=== PATIENT | male | born 1980 | race Two or more races ===

== ENCOUNTER 2019-03-03 11:15 | Inpatient (IN) | payer SELFPAY ==
[~2019-03-03] VITALS: Ht 177.8 cm; Wt 99.8 kg
[2019-03-03] VITALS (7 sets, daily range): BP systolic 117–136; BP diastolic 66–86
[2019-03-03] MEDS ORDERED: MORPHINE SULFATE 4 MG/ML VIAL. IV/SQ PRN (12:00)
[2019-03-03] MEDS ORDERED: IV NORMAL SALINE 1000ML BAG 1,000 ML IV SCH ×3 (12:00→16:18)
--- NOTE | 2019-03-03 12:08 | PHYS DOC ---
Past Medical History Past Medical History: No Pertinent History Past Surgical History: No Surgical History Alcohol Use: Occasionally Drug Use: None Adult General Chief Complaint Chief Complaint: ABDOMINAL PAIN HPI HPI Patient is a 39-year-old male who presents with complaint of right lower quadrant abdominal pain that started about a day and a half ago. Patient indicates that pain has been progressively getting worse and he states that pain was so severe last night that he wanted to cry. He states that he has had fever as well as decreased appetite. He rates pain at a 10 out of 10 and states that pain is worsened with walking and with palpation of his abdomen. He states that nothing is improving his symptoms.[] Review of Systems Review of Systems Constitutional: Positive fever and chills [] Respiratory: Denies cough or shortness of breath [] Cardiovascular: No additional information not addressed in HPI [] GI: Positive abdominal pain without vomiting or diarrhea [] : Denies dysuria or hematuria [] Musculoskeletal: Denies back pain or joint pain [] Integument: Denies rash or skin lesions [] Neurologic: Denies headache, focal weakness or sensory changes [] All other systems were reviewed and found to be within normal limits, except as documented in this note. Current Medications Current Medications Current Medications Medications (Trade) Dose Ordered Sig/Doris Start Time Stop Time Status Last Admin Dose Admin Info (CONTRAST GIVEN -- Rx MONITORING) 1 each PRN DAILY PRN 03/03/19 12:45 03/05/19 12:44 Iohexol (Omnipaque 300 Mg/ml) 75 ml 1X ONCE 03/03/19 13:00 03/03/19 13:01 DC 03/03/19 12:55 75 ML Morphine Sulfate (Morphine Sulfate) 4 mg PRN Q15MIN PRN 03/03/19 12:00 03/04/19 11:59 03/03/19 12:06 4 MG Ondansetron HCl (Zofran) 4 mg 1X ONCE 03/03/19 12:15 03/03/19 12:16 DC 03/03/19 12:05 4 MG Piperacillin Sod/ Tazobactam Sod 3.375 gm/Sodium Chloride 50 ml @ 100 mls/hr 1X ONCE 03/03/19 13:30 03/03/19 13:59 03/03/19 13:16 100 MLS/HR Sodium Chloride 1,000 ml @ 1,000 mls/hr Q1H 03/03/19 12:00 03/03/19 12:59 DC 03/03/19 12:05 1,000 MLS/HR Allergies Allergies Allergies Coded Allergies Type Severity Reaction Last Updated Verified No Known Drug Allergies 03/03/19 No Physical Exam Physical Exam Constitutional: Well developed, well nourished, no acute distress, non-toxic appearance. [] HENT: Normocephalic, atraumatic, bilateral external ears normal, oropharynx moist, no oral exudates, nose normal. [] Eyes: PERRLA, EOMI, conjunctiva normal, no discharge. [] Neck: Normal range of motion, no tenderness, supple, no stridor. [] Cardiovascular:Heart rate regular rhythm, no murmur [] Lungs & Thorax: Bilateral breath sounds clear to auscultation [] Abdomen: Bowel sounds diminished, soft, with moderate McBurney's point tenderness. Positive rebound. [] Skin: Warm, dry, no erythema, no rash. [] Extremities: No tenderness, no cyanosis, no clubbing, ROM intact, no edema. [] Neurologic: Alert and oriented X 3, no focal deficits noted. [] Current Patient Data Vital Signs Vital Signs Date Time Temp Pulse Resp B/P (MAP) Pulse Ox O2 Delivery O2 Flow Rate FiO2 03/03/19 12:53 99 16 140/75 (96) 97 Room Air 03/03/19 11:43 98.8 98.8 Lab Values Laboratory Tests Test 03/03/19 11:41 03/03/19 12:05 Urine Collection Type Unknown Urine Color Jyoti Urine Clarity Clear Urine pH 5.5 Urine Specific [place] >=1.030 Urine Protein Negative mg/dL (NEG-TRACE) Urine Glucose (UA) Negative mg/dL (NEG) Urine Ketones (Stick) Negative mg/dL (NEG) Urine Blood Negative (NEG) Urine Nitrite Negative (NEG) Urine Bilirubin Negative (NEG) Urine Urobilinogen Dipstick 1.0 mg/dL (0.2 mg/dL) Urine Leukocyte Esterase Negative (NEG) Urine RBC 0 /HPF (0-2) Urine WBC 1-4 /HPF (0-4) Urine Squamous Epithelial Cells Occ /LPF Urine Bacteria 0 /HPF (0-FEW) Urine Mucus Marked /LPF White Blood Count 16.5 x10^3/uL (4.0-11.0) H Red Blood Count 5.53 x10^6/uL (4.30-5.70) Hemoglobin 15.1 g/dL (13.0-17.5) Hematocrit 45.1 % (39.0-53.0) Mean Corpuscular Volume 82 fL (79-100) Mean Corpuscular Hemoglobin 27 pg (25-35) Mean Corpuscular Hemoglobin Concent 34 g/dL (31-37) Red Cell Distribution Width 12.9 % (11.5-14.5) Platelet Count 267 x10^3/uL (140-400) Neutrophils (%) (Auto) 80 % (31-73) H Lymphocytes (%) (Auto) 12 % (24-48) L Monocytes (%) (Auto) 8 % (0-9) Eosinophils (%) (Auto) 0 % (0-3) Basophils (%) (Auto) 0 % (0-3) Neutrophils # (Auto) 13.2 x10^3/uL (1.8-7.7) H Lymphocytes # (Auto) 2.0 x10^3/uL (1.0-4.8) Monocytes # (Auto) 1.3 x10^3/uL (0.0-1.1) H Eosinophils # (Auto) 0.0 x10^3/uL (0.0-0.7) Basophils # (Auto) 0.0 x10^3/uL (0.0-0.2) Segmented Neutrophils % 83 % (35-66) H Lymphocytes % 7 % (24-48) L Monocytes % 10 % (0-10) Platelet Estimate Adequate (ADEQUATE) Sodium Level 138 mmol/L (136-145) Potassium Level 4.7 mmol/L (3.5-5.1) Chloride Level 100 mmol/L (98-107) Carbon Dioxide Level 27 mmol/L (21-32) Anion Gap 11 (6-14) Blood Urea Nitrogen 18 mg/dL (8-26) Creatinine 1.3 mg/dL (0.7-1.3) Estimated GFR (Cockcroft-Gault) 61.5 BUN/Creatinine Ratio 14 (6-20) Glucose Level 108 mg/dL (70-99) H Calcium Level 9.3 mg/dL (8.5-10.1) Total Bilirubin 1.2 mg/dL (0.2-1.0) H Aspartate Amino Transferase (AST) 38 U/L (15-37) H Alanine Aminotransferase (ALT) 114 U/L (16-63) H Alkaline Phosphatase 90 U/L (46-116) Total Protein 7.6 g/dL (6.4-8.2) Albumin 4.0 g/dL (3.4-5.0) Albumin/Globulin Ratio 1.1 (1.0-1.7) Lipase 108 U/L (73-393) Laboratory Tests 03/03/19 12:05 Laboratory Tests 03/03/19 12:05 EKG EKG [] Radiology/Procedures Radiology/Procedures [] Impressions: PROCEDURE: CT ABD PELV W/ IV CONTRST ONLY Examination: CT ABD PELV W/ IV CONTRST ONLY History: Right lower quadrant abdominal pain. Comparison/Correlation: None Findings: Axial images of the abdomen and pelvis were obtained following IV contrast. Sagittal and coronal reformatted images were provided. Minimal right costophrenic sulcus linear atelectasis is present. Liver, spleen, pancreas, adrenal glands, and gallbladder fossa are normal. Kidneys are unremarkable. The appendix is distended with fluid. Significant wall thickening of the appendix with marked surrounding inflammatory changes present. No extraluminal gas or loculated collection. No enlarged abdominal or pelvic lymph nodes. Mesenteric lymph nodes are present but small in size. No bowel obstruction. Mild distention of the right abdominal small bowel loops probably representing ileus noted. Bony structures are unremarkable. Urinary bladder is unremarkable. Trace pelvic free fluid suggested. Impression: Acute appendicitis. No abscess. No extraluminal gas. PQRS Compliance Statement: One or more of the following individualized dose reduction techniques were utilized for this examination: 1. Automated exposure control 2. Adjustment of the mA and/or kV according to patient size 3. Use of iterative reconstruction technique Electronically signed by: Wilson Da Silva MD (03/03/2019 1:08 PM) [facility] Course & Med Decision Making Course & Med Decision Making Pertinent Labs and Imaging studies reviewed. (See chart for details) [] Dragon Disclaimer Dragon Disclaimer This electronic medical record was generated, in whole or in part, using a voice recognition dictation system. Departure Departure Impression: Primary Impression: Acute appendicitis Disposition: ADMITTED INPATIENT Admitting Physician: [facility] (Dr. Soni) Condition: IMPROVED Referrals: NO PCP (PCP) Problem Qualifiers Primary Impression: Acute appendicitis Acute appendicitis type: unspecified acute appendicitis type Qualified Codes: K35.80 - Unspecified acute appendicitis FREDIS GORMAN Jr. DO Mar 03, 2019 12:07
[2019-03-03] MEDS ORDERED: ONDANSETRON PF 4 MG/2 ML VIAL. IV ONE (12:15)
[2019-03-03 12:16] LABS: BASO % 0 % (0-3); EOS % 0 % (0-3); HEMATOCRIT 45.1 % (39.0-53.0); HEMOGLOBIN 15.1 g/dL (13.0-17.5); LYMPH % 12 % (24-48); MEAN CORPUSCULAR HEMOGLOBIN 27 pg (25-35); MEAN CORPUSCULAR HGB CONC 34 g/dL (31-37); MEAN CORPUSCULAR VOLUME 82 fL (79-100); MONO # 1.3 x10^3/uL (0.0-1.1); MONO % 8 % (0-9); NEUT # 13.2 x10^3/uL (1.8-7.7); NEUT % 80 % (31-73); PLATELET COUNT 267 x10^3/uL (140-400); RED BLOOD COUNT 5.53 x10^6/uL (4.30-5.70); RED CELL DISTRIBUTION WIDTH 12.9 % (11.5-14.5); WHITE BLOOD COUNT 16.5 x10^3/uL (4.0-11.0)
[2019-03-03 12:20] LABS: BILIRUBIN,URINE NEGATIVE (NEG); CLARITY,URINE CLEAR; COLOR,URINE AMBER; NITRITE,URINE NEGATIVE (NEG); PH,URINE 5.5; PROTEIN,URINE NEGATIVE (NEG-TRACE)
[2019-03-03 12:34] LABS: CALCIUM 9.3 mg/dL (8.5-10.1); CREATININE 1.3 mg/dL (0.7-1.3); GFR 61.5; POTASSIUM 4.7 mmol/L (3.5-5.1)
[2019-03-03 12:37] LABS: SQUAMOUS EPITHELIAL CELL,UR OCC /LPF
[2019-03-03 12:38] LABS: BACTERIA,URINE 0 /HPF (0-FEW); RBC,URINE 0 /HPF (0-2)
[2019-03-03 12:40] LABS: ALBUMIN/GLOBULIN RATIO 1.1 (1.0-1.7); TOTAL BILIRUBIN 1.2 mg/dL (0.2-1.0); TOTAL PROTEIN 7.6 g/dL (6.4-8.2)
[2019-03-03] MEDS ORDERED: CONTRAST GIVEN. MC PRN (12:45)
[2019-03-03] MEDS ORDERED: IOHEXOL 300 MG/ML 100ML VIAL. IV ONE (13:00)
--- NOTE | 2019-03-03 13:11 | RAD ---
Examination: CT ABD PELV W/ IV CONTRST ONLY History: Right lower quadrant abdominal pain. Comparison/Correlation: None Findings: Axial images of the abdomen and pelvis were obtained following IV contrast. Sagittal and coronal reformatted images were provided. Minimal right costophrenic sulcus linear atelectasis is present. Liver, spleen, pancreas, adrenal glands, and gallbladder fossa are normal. Kidneys are unremarkable. The appendix is distended with fluid. Significant wall thickening of the appendix with marked surrounding inflammatory changes present. No extraluminal gas or loculated collection. No enlarged abdominal or pelvic lymph nodes. Mesenteric lymph nodes are present but small in size. No bowel obstruction. Mild distention of the right abdominal small bowel loops probably representing ileus noted. Bony structures are unremarkable. Urinary bladder is unremarkable. Trace pelvic free fluid suggested. Impression: Acute appendicitis. No abscess. No extraluminal gas. PQRS Compliance Statement: One or more of the following individualized dose reduction techniques were utilized for this examination: 1. Automated exposure control 2. Adjustment of the mA and/or kV according to patient size 3. Use of iterative reconstruction technique Electronically signed by: Wilson Da Silva MD (03/03/2019 1:08 PM) [id number]
[2019-03-03 13:23] LABS: % LYMPHS 7 % (24-48); % MONOS 10 % (0-10); % SEGS 83 % (35-66); PLT ESTIMATE ADEQUATE (ADEQUATE)
[2019-03-03] MEDS ORDERED: PIPERACILLIN/TAZOBACTAM 3.375 GM in IV NORMAL SALINE 50ML 50 ML IV ONE (13:30)
[2019-03-03] MEDS ORDERED: MORPHINE SULFATE 4 MG/ML VIAL. IV PRN (13:45)
[2019-03-03] MEDS ORDERED: ONDANSETRON PF 4 MG/2 ML VIAL. IV PRN ×3 (13:45→17:00)
--- NOTE | 2019-03-03 14:00 | PDOC2 ---
CONSULT Date of Consult Date of Consult DATE: 03/03/19 TIME: 13:56 Reason for Consult Reason for Consult: appendicitis Referring Physician Referring Physician: Dr Soni Identification/Chief Complaint Chief Complaint RLQ pain Source Source: Chart review, Patient History of Present Illness Reason for Visit: Robel is a 39-year-old with acute onset of abdominal pain. CT scan on presentation demonstrates acute appendicitis. We are asked to see him for same Past Medical History Cardiovascular: No pertinent hx Pulmonary: No pertinent hx Renal/: No pertinent hx Past Surgical History Past Surgical History: No pertinent history Family History Family History: No Significant Current Problem List Problem List Problems Medical Problems: (1) Acute appendicitis Status: Acute Current Medications Current Medications Current Medications Morphine Sulfate (Morphine Sulfate) 4 mg PRN Q15MIN PRN IV/SQ PAIN GREATER THAN 3/10 Last administered on 03/03/19at 12:06; Start 03/03/19 at 12:00; Stop 03/03/19 at 13:41; Status DC Sodium Chloride 1,000 ml @ 1,000 mls/hr Q1H IV Last administered on 03/03/19at 12:05; Start 03/03/19 at 12:00; Stop 03/03/19 at 12:59; Status DC Ondansetron HCl (Zofran) 4 mg 1X ONCE IV Last administered on 03/03/19at 12:05; Start 03/03/19 at 12:15; Stop 03/03/19 at 12:16; Status DC Iohexol (Omnipaque 300 Mg/ml) 75 ml 1X ONCE IV Last administered on 03/03/19at 12:55; Start 03/03/19 at 13:00; Stop 03/03/19 at 13:01; Status DC Info (CONTRAST GIVEN -- Rx MONITORING) 1 each PRN DAILY PRN MC SEE COMMENTS; Start 03/03/19 at 12:45; Stop 03/05/19 at 12:44 Piperacillin Sod/ Tazobactam Sod 3.375 gm/Sodium Chloride 50 ml @ 100 mls/hr 1X ONCE IV Last administered on 03/03/19at 13:16; Start 03/03/19 at 13:30; Stop 03/03/19 at 13:59 Ondansetron HCl (Zofran) 4 mg PRN Q8HRS PRN IV NAUSEA/VOMITING; Start 03/03/19 at 13:45; Stop 03/04/19 at 13:44 Morphine Sulfate (Morphine Sulfate) 4 mg PRN Q2HR PRN IV PAIN; Start 03/03/19 at 13:45; Stop 03/04/19 at 13:44 Sodium Chloride 1,000 ml @ 100 mls/hr Q10H IV Last administered on 03/03/19at 13:54; Start 03/03/19 at 14:00; Stop 03/04/19 at 13:59 Allergies Allergies: Coded Allergies: No Known Drug Allergies (Unverified , 03/03/19) ROS Gastrointestinal: Yes Abdominal Pain, Yes Other (anorexia) Physical Exam General: Alert, Oriented X3, No acute distress HEENT: Atraumatic Lungs: Normal air movement Heart: Regular rate Abdomen: Soft, Other (tender to palpation right lower quadrant) Skin: Other (warm, dry) Neuro: Normal speech Psych/Mental Status: Mental status NL Vitals VITALS Vital Signs Date Time Temp Pulse Resp B/P (MAP) Pulse Ox O2 Delivery O2 Flow Rate FiO2 03/03/19 12:53 99 16 140/75 (96) 97 Room Air 03/03/19 11:43 98.8 98.8 Labs Labs Laboratory Tests Test 03/03/19 11:41 03/03/19 12:05 Urine Collection Type Unknown Urine Color Jyoti Urine Clarity Clear Urine pH 5.5 Urine Specific [place] >=1.030 Urine Protein Negative mg/dL (NEG-TRACE) Urine Glucose (UA) Negative mg/dL (NEG) Urine Ketones (Stick) Negative mg/dL (NEG) Urine Blood Negative (NEG) Urine Nitrite Negative (NEG) Urine Bilirubin Negative (NEG) Urine Urobilinogen Dipstick 1.0 mg/dL (0.2 mg/dL) Urine Leukocyte Esterase Negative (NEG) Urine RBC 0 /HPF (0-2) Urine WBC 1-4 /HPF (0-4) Urine Squamous Epithelial Cells Occ /LPF Urine Bacteria 0 /HPF (0-FEW) Urine Mucus Marked /LPF White Blood Count 16.5 x10^3/uL (4.0-11.0) Red Blood Count 5.53 x10^6/uL (4.30-5.70) Hemoglobin 15.1 g/dL (13.0-17.5) Hematocrit 45.1 % (39.0-53.0) Mean Corpuscular Volume 82 fL (79-100) Mean Corpuscular Hemoglobin 27 pg (25-35) Mean Corpuscular Hemoglobin Concent 34 g/dL (31-37) Red Cell Distribution Width 12.9 % (11.5-14.5) Platelet Count 267 x10^3/uL (140-400) Neutrophils (%) (Auto) 80 % (31-73) Lymphocytes (%) (Auto) 12 % (24-48) Monocytes (%) (Auto) 8 % (0-9) Eosinophils (%) (Auto) 0 % (0-3) Basophils (%) (Auto) 0 % (0-3) Neutrophils # (Auto) 13.2 x10^3/uL (1.8-7.7) Lymphocytes # (Auto) 2.0 x10^3/uL (1.0-4.8) Monocytes # (Auto) 1.3 x10^3/uL (0.0-1.1) Eosinophils # (Auto) 0.0 x10^3/uL (0.0-0.7) Basophils # (Auto) 0.0 x10^3/uL (0.0-0.2) Segmented Neutrophils % 83 % (35-66) Lymphocytes % 7 % (24-48) Monocytes % 10 % (0-10) Platelet Estimate Adequate (ADEQUATE) Sodium Level 138 mmol/L (136-145) Potassium Level 4.7 mmol/L (3.5-5.1) Chloride Level 100 mmol/L (98-107) Carbon Dioxide Level 27 mmol/L (21-32) Anion Gap 11 (6-14) Blood Urea Nitrogen 18 mg/dL (8-26) Creatinine 1.3 mg/dL (0.7-1.3) Estimated GFR (Cockcroft-Gault) 61.5 BUN/Creatinine Ratio 14 (6-20) Glucose Level 108 mg/dL (70-99) Calcium Level 9.3 mg/dL (8.5-10.1) Total Bilirubin 1.2 mg/dL (0.2-1.0) Aspartate Amino Transf (AST/SGOT) 38 U/L (15-37) Alanine Aminotransferase (ALT/SGPT) 114 U/L (16-63) Alkaline Phosphatase 90 U/L (46-116) Total Protein 7.6 g/dL (6.4-8.2) Albumin 4.0 g/dL (3.4-5.0) Albumin/Globulin Ratio 1.1 (1.0-1.7) Lipase 108 U/L (73-393) Laboratory Tests Test 03/03/19 11:41 03/03/19 12:05 Urine Collection Type Unknown Urine Color Jyoti Urine Clarity Clear Urine pH 5.5 Urine Specific [place] >=1.030 Urine Protein Negative mg/dL (NEG-TRACE) Urine Glucose (UA) Negative mg/dL (NEG) Urine Ketones (Stick) Negative mg/dL (NEG) Urine Blood Negative (NEG) Urine Nitrite Negative (NEG) Urine Bilirubin Negative (NEG) Urine Urobilinogen Dipstick 1.0 mg/dL (0.2 mg/dL) Urine Leukocyte Esterase Negative (NEG) Urine RBC 0 /HPF (0-2) Urine WBC 1-4 /HPF (0-4) Urine Squamous Epithelial Cells Occ /LPF Urine Bacteria 0 /HPF (0-FEW) Urine Mucus Marked /LPF White Blood Count 16.5 x10^3/uL (4.0-11.0) Red Blood Count 5.53 x10^6/uL (4.30-5.70) Hemoglobin 15.1 g/dL (13.0-17.5) Hematocrit 45.1 % (39.0-53.0) Mean Corpuscular Volume 82 fL (79-100) Mean Corpuscular Hemoglobin 27 pg (25-35) Mean Corpuscular Hemoglobin Concent 34 g/dL (31-37) Red Cell Distribution Width 12.9 % (11.5-14.5) Platelet Count 267 x10^3/uL (140-400) Neutrophils (%) (Auto) 80 % (31-73) Lymphocytes (%) (Auto) 12 % (24-48) Monocytes (%) (Auto) 8 % (0-9) Eosinophils (%) (Auto) 0 % (0-3) Basophils (%) (Auto) 0 % (0-3) Neutrophils # (Auto) 13.2 x10^3/uL (1.8-7.7) Lymphocytes # (Auto) 2.0 x10^3/uL (1.0-4.8) Monocytes # (Auto) 1.3 x10^3/uL (0.0-1.1) Eosinophils # (Auto) 0.0 x10^3/uL (0.0-0.7) Basophils # (Auto) 0.0 x10^3/uL (0.0-0.2) Segmented Neutrophils % 83 % (35-66) Lymphocytes % 7 % (24-48) Monocytes % 10 % (0-10) Platelet Estimate Adequate (ADEQUATE) Sodium Level 138 mmol/L (136-145) Potassium Level 4.7 mmol/L (3.5-5.1) Chloride Level 100 mmol/L (98-107) Carbon Dioxide Level 27 mmol/L (21-32) Anion Gap 11 (6-14) Blood Urea Nitrogen 18 mg/dL (8-26) Creatinine 1.3 mg/dL (0.7-1.3) Estimated GFR (Cockcroft-Gault) 61.5 BUN/Creatinine Ratio 14 (6-20) Glucose Level 108 mg/dL (70-99) Calcium Level 9.3 mg/dL (8.5-10.1) Total Bilirubin 1.2 mg/dL (0.2-1.0) Aspartate Amino Transf (AST/SGOT) 38 U/L (15-37) Alanine Aminotransferase (ALT/SGPT) 114 U/L (16-63) Alkaline Phosphatase 90 U/L (46-116) Total Protein 7.6 g/dL (6.4-8.2) Albumin 4.0 g/dL (3.4-5.0) Albumin/Globulin Ratio 1.1 (1.0-1.7) Lipase 108 U/L (73-393) Images Images CT done on presentation is reviewed Assessment/Plan Assessment/Plan Appendicitis Explained risks of appendectomy to Robel and his who is at the bedside including but not limited to bleeding, infection, injury to the bowel or bladder requiring further surgery later. Possible need for an open procedure. He understands and will proceed Thanks for consult RODOLFO ALVARADO MD Mar 03, 2019 14:00
[2019-03-03] MEDS ORDERED: LIDOCAINE 2% PF 5 ML VIAL. ONE (14:17)
[2019-03-03] MEDS ORDERED: PROPOFOL 20 ML IV ONE (14:17)
[2019-03-03] MEDS ORDERED: SUCCINYLCHOLINE 200 MG/10 ML VIAL. ONE (14:18)
[2019-03-03] MEDS ORDERED: ROCURONIUM 50 MG/5 ML VIAL. ONE (14:18)
[2019-03-03] MEDS ORDERED: fentaNYL PF VIAL 100 MCG/2 ML VIAL ONE ×2 (14:18→16:48)
[2019-03-03] MEDS ORDERED: BUPIVACAINE-EPI 0.5%-1:200000 MPF 30 ML VIAL. INJ ONE (15:00)
[2019-03-03] MEDS ORDERED: DEXAMETHASONE SOD PHOS 4 MG/ML VIAL ONE (15:32)
[2019-03-03] MEDS ORDERED: DESFLURANE 31 TO 60 MINUTES IH ONE (15:32)
[2019-03-03] MEDS ORDERED: ONDANSETRON PF 4 MG/2 ML VIAL. ONE (15:32)
[2019-03-03] MEDS ORDERED: NEOSTIGMINE METHYLSULFATE 5 MG/5 ML SYRINGE. ONE (15:33)
[2019-03-03] MEDS ORDERED: GLYCOPYRROLATE 1 MG/5 ML VIAL. ONE (15:33)
--- NOTE | 2019-03-03 16:28 | PDOC ---
BRIEF OPERATIVE NOTE Date: Mar 03, 2019 Pre-Op Diagnosis acute appendicitis Post-Op Diagnosis same Procedure Performed l/s appendectomy Surgeon Eloy Anesthesia Type: General Blood Loss 10cc IV Fluid 600cc Specimens Obtained appendix Findings acute appendicitis with periappendiceal abscess Complications none Operative Note Wk # [id number] RODOLFO ALVARADO MD Mar 03, 2019 16:28
[2019-03-03] MEDS ORDERED: 0.9 % SODIUM CHLORIDE 10 ML DISP.SYRIN. IV PRN (16:30)
[2019-03-03] MEDS ORDERED: HYDROmorphone 2 MG/ML VIAL IV PRN ×2 (16:30→17:00)
[2019-03-03] MEDS ORDERED: NALOXONE 0.4 MG/ML VIAL. IV PRN (16:30)
[2019-03-03] MEDS ORDERED: diphenhydrAMINE HCL 25 MG CAPSULE PO PRN (16:30)
[2019-03-03] MEDS ORDERED: DEXTROSE 50% 25 GM / 50ML DISP.SYRIN. IV PRN (16:30)
[2019-03-03] MEDS ORDERED: oxyCODONE/APAP 5/325 1 TAB TABLET PO PRN ×2 (16:30)
[2019-03-03] MEDS: fentaNYL PF VIAL 100 MCG/2 ML VIAL IV PRN ×2 (16:50→17:04)
[2019-03-03] MEDS ORDERED: IV RINGERS,LACTATED 1000ML 1,000 ML IV SCH (16:52)
[2019-03-03] MEDS ORDERED: fentaNYL PF VIAL 100 MCG/2 ML VIAL IV PRN (17:00)
[2019-03-03] MEDS ORDERED: MORPHINE SULFATE 2 MG/ML VIAL. IV PRN (17:00)
[2019-03-03] MEDS ORDERED: PROCHLORPERAZINE 10 MG/2 ML VIAL. IV PRN (17:00)
[2019-03-03] MEDS: POTASSIUM CL 20MEQ-0.45% NACL 1,000 ML IV SCH (18:21)
--- NOTE | 2019-03-03 19:00 | OP ---
DATE OF SURGERY: 03/03/2019 PREOPERATIVE DIAGNOSIS: Acute appendicitis. POSTOPERATIVE DIAGNOSIS: Acute appendicitis with periappendiceal abscess. SURGEON: Tim Alvarado MD ANESTHESIA: General endotracheal. ESTIMATED BLOOD LOSS: 10 mL. INTRAVENOUS FLUIDS: 600 mL. INDICATIONS: The patient is a 39-year-old with right lower quadrant pain and a CT scan consistent with appendicitis, brought for appendectomy. OPERATIVE FINDINGS: He did indeed have an acute suppurative appendicitis, which was enveloped in some epiploic appendages and had a small fluid collection around it. Visual inspection of the remainder of the abdomen failed to reveal obvious abnormalities, there were some omental adhesions in the epigastric midline. DESCRIPTION OF PROCEDURE: The patient brought to the operating suite, given a general endotracheal anesthetic. Moraes catheter was placed to dependent drainage. The abdomen prepped and draped in usual sterile fashion. An epigastric incision was infiltrated with local anesthetic, incised and a 5 mm Visiport used to safely gain access into the abdominal cavity. Pneumoperitoneum established. Camera inserted. Inspection carried out with results as noted above. With the table rolled to the left, the suprapubic and left lower quadrant ports were placed under direct vision and the epigastric port converted to 12 mm for instrumentation. Using the suction appeals officer for careful blunt dissection, the base of the appendix was identified between two epiploic appendages. A small opening created between the base of the appendix and the mesoappendix and this was divided with an Endo-AMADOR tissue load. Mesoappendix controlled with LigaSure and a single load of the vascular stapler. Large clip was used to augment the hemostasis along the suture line. The appendix and adjacent epiploic appendage were placed in an EndoCatch bag. Intra-abdominal pressure decreased to 6 cm of water. No bleeding from the appendiceal stump or mesoappendix was seen. A 19-Polish round Ricky drain was brought through the right side through a stab wound and left in the pericolic gutter and true pelvis. Appendix delivered through the epigastric incision, which was then closed with 0 Vicryl suture. At 6 cm of water intra-abdominal pressure, no bleeding from the epigastric closure or the left lower quadrant port site after its removal. Abdomen decompressed. Camera removed, no bleeding seen. Skin incisions closed with skin jonna. Sterile dressings applied. Moraes catheter removed. The patient was awakened from his anesthetic and taken to the recovery room in satisfactory condition. TIM ALVARADO MD DR: LORETTA/sheridan JOB#: [id number] / [id number]
[2019-03-03] MEDS: DOCUSATE SODIUM 100 MG CAPSULE. PO SCH (20:44)
--- NOTE | 2019-03-03 21:38 | HP ---
ADMIT DATE: 03/03/2019 CHIEF COMPLAINT: Abdominal pain. 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 Basically, he presented with abdominal pain, rated at 10/10. He has associated nausea that has been occurring all day, progressively got worse, food made it worse, described as agonizing. We did a CAT scan, he had appendicitis. We called Dr. Lyons. He was taken for a laparoscopic appendectomy. He is now on the medical floor. PAST MEDICAL HISTORY: None. ALLERGIES: None. FAMILY HISTORY: He denies any coronary artery disease in the family. SOCIAL HISTORY: He does not drink, smoke or take drugs. He works in construction. MEDICATIONS: Reviewed, please refer to the MRAD. He is on no medications. REVIEW OF SYSTEMS: GENERAL: No history of weight change, weakness or fevers. SKIN: No bruising, hair changes or rashes. EYES: No blurred, double or loss of vision. NOSE AND THROAT: No history of nosebleeds, hoarseness or sore throat. HEART: No history of palpitations, chest pain or shortness of breath on exertion. LUNGS: Denies cough, hemoptysis, wheezing or shortness of breath. GASTROINTESTINAL: He complains of abdominal pain, although it is much better after surgery. GENITOURINARY: No history of frequency, urgency, hesitancy or nocturia. NEUROLOGIC: Denies history of numbness, tingling, tremor or weakness. PSYCHIATRIC: No history of panic, anxiety or depression. ENDOCRINE: No history of heat or cold intolerance, polyuria or polydipsia. EXTREMITIES: Denies muscle weakness, joint pain, pain on walking or stiffness. PHYSICAL EXAMINATION: VITALS: Within normal limits and are stable. GENERAL: No apparent distress. Alert and oriented. HEENT: He is well developed and well nourished. Head is normocephalic, atraumatic, pupils were equally round and reactive to light and accommodation. He has moist and intact mucosal membranes of the nose, mouth and eyes. NECK: Supple, no JVD, no thyromegaly was noted. LUNGS: Clear to auscultation in all lung correa without rhonchi or wheezing. HEART: RRR, S1, S2 present. Peripheral pulses intact, no obvious murmurs were noted. ABDOMEN: He has got clean, dry and intact dressing over the four trocar sites. EXTREMITIES: Without any cyanosis, clubbing, or edema. Pedal pulses intact, Homans sign is negative. MUSCULOSKELETAL: He has got good range of motion. NEUROLOGIC: Normal speech, normal tone. A & O x3, moves all extremities, no obvious focal deficits. PSYCHIATRIC: Normal affect, normal mood. Stable. SKIN: No ulcerations or rashes, good skin turgor, no jaundice. VASCULAR: Good capillary refill, neurovascular bundle appears to be intact. LABORATORY DATA: White count 16. Electrolytes are normal. AST is a little high at 38, ALT little high at 114. ASSESSMENT AND PLAN: Appendicitis with postop laparoscopic appendectomy. For now, we are going to do wound care, p.r.n. morphine, p.r.n. Zofran. Deep venous thrombosis prophylaxis, home meds. Full code. Hope to discharge tomorrow. ILEANA STEPHENSON DO DR: QUITA/sheridan JOB#: [id number] / [id number]
[2019-03-04] MEDS: POTASSIUM CL 20MEQ-0.45% NACL 1,000 ML IV SCH (02:32)
[2019-03-04 03:00] VITALS: BP 127/66
[2019-03-04 07:00] VITALS: BP 124/72
[2019-03-04] MEDS ORDERED: ENOXAPARIN 40 MG/0.4 ML SYRINGE. SQ SCH (09:00)
[2019-03-04] MEDS: DOCUSATE SODIUM 100 MG CAPSULE. PO SCH (09:09)
--- NOTE | 2019-03-04 10:57 | PDOC ---
[employer] PROGRESS NOTE Chief Complaint Chief Complaint Abdominal pain History of Present Illness History of Present Illness 03/04 Pt POD#1 from appendectomy Pt resting comfortably Pt has been tolerating PO, no BM yet Vitals/I&O Vitals/I&O: Vital Signs Date Time Temp Pulse Resp B/P (MAP) Pulse Ox O2 Delivery O2 Flow Rate FiO2 03/04/19 10:09 Room Air 03/04/19 07:00 98.1 91 16 124/72 (89) 91 98.1 03/03/19 20:47 2.0 I & O 03/03/19 03/03/19 03/04/19 15:00 23:00 07:00 Intake Total 1000 ml 3800 ml 1540 ml Output Total 90 ml 150 ml Balance 1000 ml 3710 ml 1390 ml Physical Exam General: Alert, Oriented X3, No acute distress Heart: Regular rate, Normal S1, Normal S2 Lungs: Clear Abdomen: Soft, No tenderness, Other (Dressing clean, dry, and intact) Extremities: No clubbing, No cyanosis Skin: No rashes, No breakdown, Other Labs Labs: Laboratory Tests Test 03/03/19 11:41 03/03/19 12:05 Urine Collection Type Unknown Urine Color Jyoti Urine Clarity Clear Urine pH 5.5 Urine Specific [place] >=1.030 Urine Protein Negative mg/dL (NEG-TRACE) Urine Glucose (UA) Negative mg/dL (NEG) Urine Ketones (Stick) Negative mg/dL (NEG) Urine Blood Negative (NEG) Urine Nitrite Negative (NEG) Urine Bilirubin Negative (NEG) Urine Urobilinogen Dipstick 1.0 mg/dL (0.2 mg/dL) Urine Leukocyte Esterase Negative (NEG) Urine RBC 0 /HPF (0-2) Urine WBC 1-4 /HPF (0-4) Urine Squamous Epithelial Cells Occ /LPF Urine Bacteria 0 /HPF (0-FEW) Urine Mucus Marked /LPF White Blood Count 16.5 x10^3/uL (4.0-11.0) Red Blood Count 5.53 x10^6/uL (4.30-5.70) Hemoglobin 15.1 g/dL (13.0-17.5) Hematocrit 45.1 % (39.0-53.0) Mean Corpuscular Volume 82 fL (79-100) Mean Corpuscular Hemoglobin 27 pg (25-35) Mean Corpuscular Hemoglobin Concent 34 g/dL (31-37) Red Cell Distribution Width 12.9 % (11.5-14.5) Platelet Count 267 x10^3/uL (140-400) Neutrophils (%) (Auto) 80 % (31-73) Lymphocytes (%) (Auto) 12 % (24-48) Monocytes (%) (Auto) 8 % (0-9) Eosinophils (%) (Auto) 0 % (0-3) Basophils (%) (Auto) 0 % (0-3) Neutrophils # (Auto) 13.2 x10^3/uL (1.8-7.7) Lymphocytes # (Auto) 2.0 x10^3/uL (1.0-4.8) Monocytes # (Auto) 1.3 x10^3/uL (0.0-1.1) Eosinophils # (Auto) 0.0 x10^3/uL (0.0-0.7) Basophils # (Auto) 0.0 x10^3/uL (0.0-0.2) Segmented Neutrophils % 83 % (35-66) Lymphocytes % 7 % (24-48) Monocytes % 10 % (0-10) Platelet Estimate Adequate (ADEQUATE) Sodium Level 138 mmol/L (136-145) Potassium Level 4.7 mmol/L (3.5-5.1) Chloride Level 100 mmol/L (98-107) Carbon Dioxide Level 27 mmol/L (21-32) Anion Gap 11 (6-14) Blood Urea Nitrogen 18 mg/dL (8-26) Creatinine 1.3 mg/dL (0.7-1.3) Estimated GFR (Cockcroft-Gault) 61.5 BUN/Creatinine Ratio 14 (6-20) Glucose Level 108 mg/dL (70-99) Calcium Level 9.3 mg/dL (8.5-10.1) Total Bilirubin 1.2 mg/dL (0.2-1.0) Aspartate Amino Transf (AST/SGOT) 38 U/L (15-37) Alanine Aminotransferase (ALT/SGPT) 114 U/L (16-63) Alkaline Phosphatase 90 U/L (46-116) Total Protein 7.6 g/dL (6.4-8.2) Albumin 4.0 g/dL (3.4-5.0) Albumin/Globulin Ratio 1.1 (1.0-1.7) Lipase 108 U/L (73-393) Review of Systems Review of Systems: No CP, SOB Assessment and Plan Assessmemt and Plan Problems Medical Problems: (1) Acute appendicitis Status: Acute Assessment POD#1 appendectomy Plan Encourage PO intake PT/OT IV abx per surgery Antiemetic prn Pain control HM Full code DC when ok with surgery Comment Review of Relevant I have reviewed the following items maurice (where applicable) has been applied. Medications: Current Medications Medications (Trade) Dose Ordered Sig/Doris Route PRN Reason Start Time Stop Time Status Last Admin Dose Admin Morphine Sulfate (Morphine Sulfate) 4 mg PRN Q15MIN PRN IV/SQ PAIN GREATER THAN 10 03/03/19 12:00 03/03/19 13:41 DC 03/03/19 12:06 Sodium Chloride 1,000 ml @ 1,000 mls/hr Q1H IV 03/03/19 12:00 03/03/19 12:59 DC 03/03/19 12:05 Ondansetron HCl (Zofran) 4 mg 1X ONCE IV 03/03/19 12:15 03/03/19 12:16 DC 03/03/19 12:05 Iohexol (Omnipaque 300 Mg/ml) 75 ml 1X ONCE IV 03/03/19 13:00 03/03/19 13:01 DC 03/03/19 12:55 Piperacillin Sod/ Tazobactam Sod 3.375 gm/Sodium Chloride 50 ml @ 100 mls/hr 1X ONCE IV 03/03/19 13:30 03/03/19 13:59 DC 03/03/19 13:16 Morphine Sulfate (Morphine Sulfate) 4 mg PRN Q2HR PRN IV PAIN 03/03/19 13:45 03/04/19 13:44 03/03/19 13:59 Sodium Chloride 1,000 ml @ 100 mls/hr Q10H IV 03/03/19 14:00 03/03/19 19:57 DC 03/03/19 13:54 Metronidazole 100 ml @ 100 mls/hr 1X ONCE IV 03/03/19 14:30 03/03/19 15:29 DC 03/03/19 15:05 Bupivacaine HCl/ Epinephrine Bitart (Sensorcain-Epi 0.5%-1:374237 Mpf) 30 ml 1X ONCE INJ 03/03/19 15:00 03/03/19 15:01 DC 03/03/19 15:24 Enoxaparin Sodium (Lovenox 40mg Syringe) 40 mg Q24H SQ 03/04/19 09:00 03/04/19 09:09 Potassium Chloride/Sodium Chloride 1,000 ml @ 100 mls/hr Q10H IV 03/03/19 17:00 03/04/19 02:32 Oxycodone/ Acetaminophen (Percocet 5/325) 2 tab PRN Q4HRS PRN PO MODERATE PAIN, SEVERE PAIN 03/03/19 16:30 03/04/19 09:09 Docusate Sodium (Colace) 100 mg BID PO 03/03/19 21:00 03/04/19 09:09 Fentanyl Citrate (Fentanyl 2ml Vial) 50 mcg PRN Q5MIN PRN IV MODERATE TO SEVERE PAIN 03/03/19 17:00 03/04/19 16:59 03/03/19 17:04 ILEANA STEPHENSON III DO Mar 04, 2019 10:57
--- NOTE | 2019-03-04 11:00 | PDOC ---
SURGICAL PROGRESS NOTE Subjective feels better and kids in room Vital Signs Vital Signs Date Time Temp Pulse Resp B/P (MAP) Pulse Ox O2 Delivery O2 Flow Rate FiO2 03/04/19 10:09 Room Air 03/04/19 07:00 98.1 91 16 124/72 (89) 91 98.1 03/03/19 20:47 2.0 I&O Intake and Output 03/04/19 07:00 Intake Total 6340 ml Output Total 240 ml Balance 6100 ml Intake Oral 540 ml IV Total 5800 ml Output Urine Total 50 ml Drainage Total 180 ml Estimated Blood Loss 10 ml # Voids 4 PATIENT HAS A RAMIREZ: No General: Alert Abdomen: Soft, Other (TYLER with serobloody drainage) Labs Laboratory Tests Test 03/03/19 11:41 03/03/19 12:05 Urine Collection Type Unknown Urine Color Jyoti Urine Clarity Clear Urine pH 5.5 Urine Specific [place] >=1.030 Urine Protein Negative mg/dL (NEG-TRACE) Urine Glucose (UA) Negative mg/dL (NEG) Urine Ketones (Stick) Negative mg/dL (NEG) Urine Blood Negative (NEG) Urine Nitrite Negative (NEG) Urine Bilirubin Negative (NEG) Urine Urobilinogen Dipstick 1.0 mg/dL (0.2 mg/dL) Urine Leukocyte Esterase Negative (NEG) Urine RBC 0 /HPF (0-2) Urine WBC 1-4 /HPF (0-4) Urine Squamous Epithelial Cells Occ /LPF Urine Bacteria 0 /HPF (0-FEW) Urine Mucus Marked /LPF White Blood Count 16.5 x10^3/uL (4.0-11.0) Red Blood Count 5.53 x10^6/uL (4.30-5.70) Hemoglobin 15.1 g/dL (13.0-17.5) Hematocrit 45.1 % (39.0-53.0) Mean Corpuscular Volume 82 fL (79-100) Mean Corpuscular Hemoglobin 27 pg (25-35) Mean Corpuscular Hemoglobin Concent 34 g/dL (31-37) Red Cell Distribution Width 12.9 % (11.5-14.5) Platelet Count 267 x10^3/uL (140-400) Neutrophils (%) (Auto) 80 % (31-73) Lymphocytes (%) (Auto) 12 % (24-48) Monocytes (%) (Auto) 8 % (0-9) Eosinophils (%) (Auto) 0 % (0-3) Basophils (%) (Auto) 0 % (0-3) Neutrophils # (Auto) 13.2 x10^3/uL (1.8-7.7) Lymphocytes # (Auto) 2.0 x10^3/uL (1.0-4.8) Monocytes # (Auto) 1.3 x10^3/uL (0.0-1.1) Eosinophils # (Auto) 0.0 x10^3/uL (0.0-0.7) Basophils # (Auto) 0.0 x10^3/uL (0.0-0.2) Segmented Neutrophils % 83 % (35-66) Lymphocytes % 7 % (24-48) Monocytes % 10 % (0-10) Platelet Estimate Adequate (ADEQUATE) Sodium Level 138 mmol/L (136-145) Potassium Level 4.7 mmol/L (3.5-5.1) Chloride Level 100 mmol/L (98-107) Carbon Dioxide Level 27 mmol/L (21-32) Anion Gap 11 (6-14) Blood Urea Nitrogen 18 mg/dL (8-26) Creatinine 1.3 mg/dL (0.7-1.3) Estimated GFR (Cockcroft-Gault) 61.5 BUN/Creatinine Ratio 14 (6-20) Glucose Level 108 mg/dL (70-99) Calcium Level 9.3 mg/dL (8.5-10.1) Total Bilirubin 1.2 mg/dL (0.2-1.0) Aspartate Amino Transf (AST/SGOT) 38 U/L (15-37) Alanine Aminotransferase (ALT/SGPT) 114 U/L (16-63) Alkaline Phosphatase 90 U/L (46-116) Total Protein 7.6 g/dL (6.4-8.2) Albumin 4.0 g/dL (3.4-5.0) Albumin/Globulin Ratio 1.1 (1.0-1.7) Lipase 108 U/L (73-393) Laboratory Tests Test 03/03/19 11:41 03/03/19 12:05 Urine Collection Type Unknown Urine Color Jyoti Urine Clarity Clear Urine pH 5.5 Urine Specific [place] >=1.030 Urine Protein Negative mg/dL (NEG-TRACE) Urine Glucose (UA) Negative mg/dL (NEG) Urine Ketones (Stick) Negative mg/dL (NEG) Urine Blood Negative (NEG) Urine Nitrite Negative (NEG) Urine Bilirubin Negative (NEG) Urine Urobilinogen Dipstick 1.0 mg/dL (0.2 mg/dL) Urine Leukocyte Esterase Negative (NEG) Urine RBC 0 /HPF (0-2) Urine WBC 1-4 /HPF (0-4) Urine Squamous Epithelial Cells Occ /LPF Urine Bacteria 0 /HPF (0-FEW) Urine Mucus Marked /LPF White Blood Count 16.5 x10^3/uL (4.0-11.0) Red Blood Count 5.53 x10^6/uL (4.30-5.70) Hemoglobin 15.1 g/dL (13.0-17.5) Hematocrit 45.1 % (39.0-53.0) Mean Corpuscular Volume 82 fL (79-100) Mean Corpuscular Hemoglobin 27 pg (25-35) Mean Corpuscular Hemoglobin Concent 34 g/dL (31-37) Red Cell Distribution Width 12.9 % (11.5-14.5) Platelet Count 267 x10^3/uL (140-400) Neutrophils (%) (Auto) 80 % (31-73) Lymphocytes (%) (Auto) 12 % (24-48) Monocytes (%) (Auto) 8 % (0-9) Eosinophils (%) (Auto) 0 % (0-3) Basophils (%) (Auto) 0 % (0-3) Neutrophils # (Auto) 13.2 x10^3/uL (1.8-7.7) Lymphocytes # (Auto) 2.0 x10^3/uL (1.0-4.8) Monocytes # (Auto) 1.3 x10^3/uL (0.0-1.1) Eosinophils # (Auto) 0.0 x10^3/uL (0.0-0.7) Basophils # (Auto) 0.0 x10^3/uL (0.0-0.2) Segmented Neutrophils % 83 % (35-66) Lymphocytes % 7 % (24-48) Monocytes % 10 % (0-10) Platelet Estimate Adequate (ADEQUATE) Sodium Level 138 mmol/L (136-145) Potassium Level 4.7 mmol/L (3.5-5.1) Chloride Level 100 mmol/L (98-107) Carbon Dioxide Level 27 mmol/L (21-32) Anion Gap 11 (6-14) Blood Urea Nitrogen 18 mg/dL (8-26) Creatinine 1.3 mg/dL (0.7-1.3) Estimated GFR (Cockcroft-Gault) 61.5 BUN/Creatinine Ratio 14 (6-20) Glucose Level 108 mg/dL (70-99) Calcium Level 9.3 mg/dL (8.5-10.1) Total Bilirubin 1.2 mg/dL (0.2-1.0) Aspartate Amino Transf (AST/SGOT) 38 U/L (15-37) Alanine Aminotransferase (ALT/SGPT) 114 U/L (16-63) Alkaline Phosphatase 90 U/L (46-116) Total Protein 7.6 g/dL (6.4-8.2) Albumin 4.0 g/dL (3.4-5.0) Albumin/Globulin Ratio 1.1 (1.0-1.7) Lipase 108 U/L (73-393) Problem List Problems Medical Problems: (1) Acute appendicitis Status: Acute Assessment/Plan POD 1 home with drain f/u Tuesday 03/06 RODOLFO LAVARADO MD Mar 04, 2019 10:59
--- NOTE | 2019-03-07 15:07 | PATHOLOGY ---
[facility] Accession Number: [id number] . 01 Material submitted: . appendix - APPENDIX . 01 Clinical history: . None provided . 02 Diagnosis: Appendix with attached mesoappendix and separate segment of adipose tissue, laparoscopic appendectomy: - Acute appendicitis with serosal exudate. (JPM:technical services assistant; 03/07/2019) MBR 03/07/2019 1252 Local . 02 Electronically signed: . Arsh Medina MD, Pathologist NPI- [id number] . 01 Gross description: . Received in formalin labeled "Robel Gipson, appendix," is an appendix measuring 4.8 cm in length by 1.1 cm in diameter with a scant amount of attached mesoappendix measuring up to 0.5 cm in thickness. The appendiceal serosa is thickened and duncan-kramer to hemorrhagic in appearance, displaying attached pale kramer fibrous adhesions toward the distal tip. The proximal margin is closed with a tapered staple line; this area is inked black. Serial sectioning reveals a grossly patent to dilated lumen ranging from 0.2 to 0.6 cm in diameter and filled with friable, pale kramer to hemorrhagic material. The proximal margin and bisected distal tip are submitted in cassette A1, and the remainder of the appendix is submitted proximal-distal in cassettes A2 through A4. . Also received within the specimen container is a separate segment of lobular, yellow-brown adipose tissue partially covered in kramer fibrous adhesions measuring 5.4 x 3.5 x 1.2 cm in greatest dimensions. A portion of this segment is partially disrupted in appearance (inked black). Serial sectioning reveals lobular, pale yellow to extensively hemorrhagic cut surfaces. This segment is submitted representatively in cassette A5. (DAC; 03/06/2019) XDC/XDC 03/06/2019 07 Local . 02 Pathologist provided ICD-10: K35.80 . 02 CPT . 437662 Specimen Comment: A courtesy copy of this report has been sent to [phone], [phone] Specimen Comment: [id number], Specimen Comment: Report sent to ,DR GORMAN / DR STEPHENSON Performed at: 01 [facility] [address] [place] [address] [address], [place] [id number] MD Alexis Crump MD Phone: [phone] Performed at: 02 [facility] [address] [place], [place] [id number] MD Arsh Medina MD Phone: [phone]
== END 2019-03-04 12:15 | disposition home or self-care (01) | DRG 340 ==
LOC: ER 11:15 → 4 NORTH 13:37
PROVIDERS: ADMIT Internal Medicine; ATTEND Internal Medicine
PROC: 0DTJ4ZZ Resection of Appendix, Percutaneous Endoscopic Approach (ICD-10-PCS; principal; 2019-03-03 14:42)
DX: K35.33 Acute appendicitis with perforation, localized peritonitis, and gangrene, with abscess (principal); Z79.899 Other long term (current) drug therapy
CPT/HCPCS: 36415; 74177; 80053; 81001; 83690; 85007; 85025; 88304; 96361; 96374; 96375; A7015; J0330; J1100; J1650; J2001; J2270; J2405; J2543; J2704; J2710; J3010; J3490; J7030; Q9967; 99285-25; G0378